=== PATIENT | female | born 1960 | race Caucasian/White ===

== ENCOUNTER → 2016-12-03 | Outpatient (CLI) | payer BC | END | disposition home or self-care (01) | LOC: CDC | DX: D05.12 Intraductal carcinoma in situ of left breast (principal); C50.111 Malignant neoplasm of central portion of right female breast | CPT/HCPCS: 93000 ==

== ENCOUNTER → 2016-12-17 | Outpatient (CLI) | payer BC ==
[~2016-12-17] MED LIST: CITRACAL D + H1 EACH PO; ENDOCET 5-3251 EACH PO; ONE DAILY WOME1 EACH PO; TYLENOL REGULA325 MG PO
== END | disposition home or self-care (01) ==
LOC: NUC 12:49
DX: C50.111 Malignant neoplasm of central portion of right female breast (principal)
CPT/HCPCS: 78195; A9541

== ENCOUNTER 2016-12-18 07:04 | Day surgery (SDC) | payer BC ==
[~2016-12-18] VITALS: Ht 162.6 cm; Wt 93.9 kg
[~2016-12-18 07:04] MED LIST changes: -ENDOCET 5-3251 EACH PO
[2016-12-18 07:55] VITALS: BP 154/80
[2016-12-18 15:45] VITALS: BP 165/75
[2016-12-18 20:04] VITALS: BP 140/67
[2016-12-18 23:26] VITALS: BP 116/54
[2016-12-19 02:50] VITALS: BP 140/63
[2016-12-19 07:40] VITALS: BP 130/62
[2016-12-19 08:05] LABS: MCH 29.6 PG (29.0-34.0); MCHC 33.5 G/DL (30.0-36.0); MCV 88.5 FL (83-99); MEAN PLAT.VOLUME 10.4 uM^3 (9.5-12.4); PLATELET COUNT 279 K/uL (156-360); RBC DIS.WIDTH-SD 42.4 % (39-53); RED BLOOD COUNT 4.52 M/uL (3.80-5.20); WHITE BLOOD COUNT 11.7 K/uL (4.1-10.2)
[2016-12-19] MEDS ORDERED: ENDOCET 5-3251 EACH PO (08:29)
== END 2016-12-19 12:53 | disposition home or self-care (01) ==
LOC: SDC 07:04 → 2SOUTH 13:42 → 2EAST 13:42 → 2SOUTH 13:42 → ENRESERV 13:44 → SDC 14:34 → ENRESERV 15:01 → 2EAST 16:42
PROVIDERS: Surgery
DX: C50.111 Malignant neoplasm of central portion of right female breast (principal); D05.12 Intraductal carcinoma in situ of left breast; L91.8 Other hypertrophic disorders of the skin; E66.9 Obesity, unspecified; Z68.34 Body mass index [BMI] 34.0-34.9, adult; Z88.0 Allergy status to penicillin; Z17.0 Estrogen receptor positive status [ER+]; Z80.3 Family history of malignant neoplasm of breast; Z80.41 Family history of malignant neoplasm of ovary; Z80.43 Family history of malignant neoplasm of testis; Z82.62 Family history of osteoporosis; Z82.0 Family history of epilepsy and other diseases of the nervous system
CPT/HCPCS: 78999; 85027; 88304; 88305; 88309; 88341 TC; 88342 TC; G0378; J0131; J0330; J1100; J1170; J2250; J2405; J3010; J3480